=== PATIENT | male | born 1990 | race Asian ===

== ENCOUNTER 2021-05-20 20:44 | Emergency (ER) | payer MEDICAID ==
[~2021-05-20] VITALS: Ht 165.1 cm; Wt 86.4 kg
[2021-05-20] MEDS ORDERED: acetaminophen 325mg tablet PO ONE (22:00)
--- NOTE | 2021-05-20 22:00 | NUR ---
barros swab collected. pt reports waking up this am with abd pain and this has persisted throughtout the day. Now it is intermittent and 5-6 out of 10. Pts brother is with him. Pt remains in RAP area. Awaiting barros swab result. Fever 102.8 orally. Tylenol ordered. Pt states he is "coughing up blood". Reports no history of this.
--- NOTE | 2021-05-20 22:24 | NUR ---
COVID POSITIVE. DR. SR NOTIFIED.
[2021-05-20 22:47] VITALS: BP 111/75
== END 2021-05-20 22:49 | disposition home or self-care (01) ==
LOC: ER 20:45
DX: U07.1 COVID-19 (principal); J02.9 Acute pharyngitis, unspecified; R11.0 Nausea; R05 Cough; R50.9 Fever, unspecified; R10.84 Generalized abdominal pain
CPT/HCPCS: 71045; 87635; 99284; C9803